=== PATIENT | female | born 1990 | race Caucasian/White ===

== ENCOUNTER 2019-08-13 16:24 | Emergency (ER) | payer MEDICAID ==
[2019-08-13] MEDS ORDERED: Clindamycin HCl 150 MG Cap PO ONE (16:25)
[2019-08-13 16:29] VITALS: BP 153/77; PULSE 95
[2019-08-13] MEDS ORDERED: Take Home: Clindamycin HCl 150 MG Cap, 6 Cap Pack ONE (16:39)
--- NOTE | 2019-08-13 16:49 | EDM.PDOC ---
ED HPI GENERAL MEDICAL PROBLEM - General Chief Complaint: ENT Problem Stated Complaint: "lump behind L)ear" Time Seen by Provider: 08/13/19 16:43 Source of Information: Reports: Patient, Family History Limitations: Reports: No Limitations - History of Present Illness INITIAL COMMENTS - FREE TEXT/NARRATIVE: ijn with c/o pain and swelling to left ear lobe and neck for the past few days, no fever or chills, no neck/back pain or stiffness, no runny nose or congestion , no sore throat Onset: Other (4 days) Duration: Day(s): Location: Reports: Other (left ear) Quality: Reports: Ache Severity: Moderate Improves with: Reports: None Worsens with: Reports: None Associated Symptoms: Reports: No Other Symptoms. 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: Reports: Other (see below) (none) Left Ear Pain Score (Numeric/FACES): 3 - Related Data Allergies Allergy/AdvReac Type Severity Reaction Status Date / Time loratadine Allergy Rash Verified 08/13/19 16:29 Sulfa (Sulfonamide Allergy Fainting Verified 08/13/19 16:30 Antibiotics) Home Meds: Home Meds Control 1 tab PO DAILY 08/13/14 [History] Ibuprofen 400 mg PO Q6H 08/19/15 [History] Clindamycin HCl 150 mg PO TID 10 Days #30 capsule 08/13/19 [Rx] Past Medical History - Past Health History Medical/Surgical History: Denies Medical/Surgical History - Past Surgical History HEENT Surgical History: Reports: Adenoidectomy, Tonsillectomy GI Surgical History: Reports: Appendectomy Other Musculoskeletal Surgeries/Procedures:: ARM FIXATION AFTER FRACTURE Social & Family History - Family History Family Medical History: Noncontributory - Tobacco Use Smoking Status *Q: Current Every Day Smoker Years of Tobacco use: 3 Packs/Tins Daily: 1 - Caffeine Use Caffeine Use: Reports: Coffee, Soda - Recreational Drug Use Recreational Drug Use: No ED ROS ENT - Review of Systems Review Of Systems: See Below Constitutional: Reports: No Symptoms. Denies: Fever, Chills HEENT: Reports: Ear Pain (ear lobe). Denies: Ear Discharge, Eye Discharge, Hearing Loss, Nose Pain, Sinus Problem, Throat Pain, Vertigo Respiratory: Reports: No Symptoms. Denies: Shortness of Breath Cardiovascular: Reports: No Symptoms. Denies: Chest Pain Endocrine: Reports: No Symptoms GI/Abdominal: Reports: No Symptoms. Denies: Abdominal Pain, Nausea, Vomiting : Reports: No Symptoms Musculoskeletal: Reports: No Symptoms Skin: Reports: Erythema Neurological: Reports: No Symptoms. Denies: Dizziness, Headache Psychiatric: Reports: No Symptoms ED EXAM, ENT - Physical Exam Exam: See Below Exam Limited By: No Limitations General Appearance: Alert, WD/WN, No Apparent Distress Ears: Normal Canal, Hearing Grossly Normal, Normal TMs, Other (left ear lobe redness and swellingt). No: Normal External Exam Nose: Normal Inspection, Normal Mucousa Mouth/Throat: Normal Inspection, Normal Lips, Normal Oropharynx. No: Normal Teeth (fx left upper molar) Head: Atraumatic, Normocephalic Neck: Normal Inspection, Supple, Non-Tender, Full Range of Motion, Lymphadenopathy (L) Respiratory/Chest: No Respiratory Distress, Lungs Clear, Normal Breath Sounds Cardiovascular: Normal Peripheral Pulses, Regular Rate, Rhythm, No Murmur Back: Normal Inspection, Full Range of Motion Extremities: Normal Inspection, Normal Range of Motion, Non-Tender, Normal Capillary Refill Neurological: Alert, Oriented, Normal Cognition, Normal Gait, No Motor/Sensory Deficits Psychiatric: Normal Affect, Normal Mood Skin: Warm, Dry, Intact, Normal Color, Other (left ear lobe redness and swelling ) Course - Vital Signs Last Recorded V/S: Last Vital Signs Temp 36.9 C 08/13/19 16:25 Pulse 95 08/13/19 16:25 Resp 18 08/13/19 16:25 BP 153/77 H 08/13/19 16:25 Pulse Ox 100 08/13/19 16:25 - Orders/Labs/Meds Orders: Active Orders 24 hr Category Date Time Status Clindamycin HCl [Take Home: Clindamycin HCl 150 MG, 6 Med 08/13/19 20:00 Ordered Cap Pack] 1 packet PO TID Departure - Departure Time of Disposition: 16:45 Disposition: Home, Self-Care 01 Condition: Good Clinical Impression: Cellulitis of left earlobe - Discharge Information *PRESCRIPTION DRUG MONITORING PROGRAM REVIEWED*: Not Applicable *COPY OF PRESCRIPTION DRUG MONITORING REPORT IN PATIENT ANUJA: Not Applicable Prescriptions: Clindamycin HCl 150 mg PO TID 10 Days #30 capsule Instructions: Cellulitis, Adult, [id number] Forms: ED Department Discharge Additional Instructions: warm moist heat off and on frequently clindamycin 150mg 3 x a day for 10 days follow up with your family doctor this week, call thursday for an appointment time return to the ER sooner if worse or problems - Problem List & Annotations (1) Cellulitis of left earlobe SNOMED Code(s): 491446602 Code(s): H60.12 - CELLULITIS OF LEFT EXTERNAL EAR Status: Acute Priority : High - Problem List Review Problem List Initiated/Reviewed/Updated: Yes - My Orders Last 24 Hours: My Active Orders 08/13/19 20:00 Clindamycin HCl [Take Home: Clindamycin HCl 150 MG, 6 Cap Pack] 1 packet PO TID - Assessment/Plan Last 24 Hours: My Active Orders 08/13/19 20:00 Clindamycin HCl [Take Home: Clindamycin HCl 150 MG, 6 Cap Pack] 1 packet PO TID Plan: as above
[2019-08-13] MEDS ORDERED: Take Home: Clindamycin HCl 150 MG Cap, 6 Cap Pack PO SCH (20:00)
== END 2019-08-13 16:58 | disposition home or self-care (01) ==
LOC: CC.ED 16:24
DX: H60.12 Cellulitis of left external ear (principal); F17.210 Nicotine dependence, cigarettes, uncomplicated; Z88.8 Allergy status to other drugs, medicaments and biological substances; Z88.2 Allergy status to sulfonamides
CPT/HCPCS: 99283; A9270-GY

== ENCOUNTER 2022-11-12 06:02 | Emergency (ER) | payer BC, MEDICAID ==
[2022-11-12 07:01] VITALS: BP 136/95; PULSE 78
[2022-11-12] MEDS: Magnesium Sulfate/Water 2 GM in Premix Bag 1 BAG IV ONE ×2 (08:05→11:40)
[2022-11-12] MEDS: Potassium Chloride Riders 20 MEQ in Premix Bag 1 BAG IV ONE (10:00)
[2022-11-12] MEDS: Potassium Chloride 10 MEQ Tab.ER PO ONE (10:01)
[2022-11-12] MEDS: SODIUM CHLORIDE 0.9% IV ONE (10:25)
[2022-11-12] MEDS: OXYTOCIN IV ONE (10:25)
[2022-11-12] MEDS: Potassium Chloride 10 MEQ Tab.ER ONE (10:37)
[2022-11-12] MEDS: Ampicillin 1 GM Vial IVPUSH ONE (10:37)
[2022-11-12] MEDS: Ketorolac 30 MG/ML SDV IVPUSH SCH (11:04)
== END 2022-11-12 12:10 | disposition critical access hospital (66) ==
LOC: MERGE 06:02 → CC.ED 06:02
DX: O90.89 Other complications of the puerperium, not elsewhere classified (principal)
CPT/HCPCS: 36415; 80053; 81001; 83605; 83735; 85025; 86850; 86900; 86901; 96365; 96366; 96367; 96375; 99285-25; A9270-GY; J0290; J1885; J2590; J3475; J3480; J7040